=== PATIENT | female | born 1980 | race Two or more races ===

== ENCOUNTER 2018-07-12 20:50 | Inpatient (IN) | payer OTHER ==
[2018-07-12] MEDS ORDERED: CITRIC ACID/SODIUM CITRATE 30 ML UNIT-DOSE CUP PO ONE (23:00)
[2018-07-13] MEDS ORDERED: DEXTROSE 5%-LACTATED RINGERS 500 ML IV ONE (00:15)
[2018-07-13] MEDS ORDERED: DEXTROSE 5%-LACTATED RINGERS 1,000 ML IV SCH (00:45)
--- NOTE | 2018-07-13 01:04 | HP ---
Past Medical History - Admission History of Present Illness: 38 yo @ 40 3/7 wks by first trimester ultrasound, EDC 07/07/2018 complicated by: 1. AMA - reassuring NIPT, AFP 2. Alpha thalassemia - Heterozygous FOB - not tested Patient presents with chief complaint of contractions which increased in intensity and frequency at approximately 1830 07/12. She reports movement , denies leakage of fluid or vaginal bleeding. History Source: Patient Limitations to Obtaining History: No Limitations - Past Medical History Cardiovascular: No: HTN Pulmonary: No: Asthma Gastrointestinal: No: GERD ...: 3 ...Para: 0 ...Term: 0 ...: 0 ...Spon : 2 ...Induced : 0 ...LMP: 10/11/17 ... Weeks Gestation by Dates: 39.1 ...EDC by Dates: 07/18/18 ...EDC by Sono: 07/10/18 Heme/Onc: Yes: Other (alpha thalassemia carrier). No: Anemia - Past Surgical History Past Surgical History: Yes: Appendectomy Hx Myomectomy: No Hx Transabdominal Cerclage: No Additional Surgical History: Liposuction. Bilateral hernia repair. Rhinoplasty. Appendectomy (mini laparotomy) - Alcohol/Substance Use Hx Alcohol Use: No History of Substance Use: reports: None - Social History Usual Living Arrangement: Yes: Alone History of Recent Travel: No Home Medications - Allergies Allergies/Adverse Reactions: Allergies Allergy/AdvReac Type Severity Reaction Status Date / Time No Known Allergies Allergy Verified 07/12/18 22:05 - Home Medications Home Medications: Ambulatory Orders Pnv No.95/Ferrous Fum/Folic AC [ Vitamin Tablet] 1 each PO DAILY Family Disease History - Family Disease History Family History: Denies Review of Systems - Review of Systems Constitutional: reports: No Symptoms Cardiovascular: reports: No Symptoms Respiratory: reports: No Symptoms Gastrointestinal: reports: No Symptoms Musculoskeletal: reports: No Symptoms Neurological: reports: No Symptoms Hematology/Lymphatic: reports: No Symptoms Psychiatric: reports: No Symptoms Physical Exam - Maternity Vital Signs: Vital Signs Temperature 98.7 F 07/12/18 21:58 Pulse Rate 79 07/12/18 21:58 Respiratory Rate 18 07/12/18 21:58 Blood Pressure 126/79 11/28/18 21:58 O2 Sat by Pulse Oximetry (%) Constitutional: Yes: Well Nourished, No Distress, Calm Cardiovascular: Yes: Regular Rate and Rhythm Lungs: Clear to auscultation - Abdominal Exam/OB Number of Fetuses: Single Presentation: Vertex Contractions: Yes Regularity: Regular Intensity: Moderate Monitor Mode: External Category: I Accelerations: Non-Uniform Decelerations: None - Vaginal Exam/OB Vaginal Bleediing: No Dilatation (cm): 3 Effacement (%): 80 Amniotic Membrane Status: Intact Station: -4 - Physical Exam Edema: No Psychiatric: Yes: Alert, Oriented - Labs Lab Results: PNL: O positive, antibody negative; RPR NR; HIV neg; HCV neg; HBS Ag neg; Rubella immune; Varicella immune; CF/SMA/Fx neg; NIPT neg; GCT WNL; GBS neg; Parvo immune Hemorrhage Risk Assessment - Risk Factors Medium Risk Factors: Yes: None High Risk Factors: Yes: None Risk Score: 1 Risk Level: Medium Risk Assessment/Plan 38 yo @ 40 3/7 wks active labor 1. Admit to L&D 2. Consents reviewed and signed 3. GBS negative 4. Will offer pain medication upon request
[2018-07-13] MEDS ORDERED: BUTORPHANOL TARTRATE 1 MG/ML VIAL IVPB ONE (01:07)
[2018-07-13] MEDS ORDERED: PROMETHAZINE HCL 25 MG/1 ML VIAL IVPUSH ONE (01:07)
[2018-07-13] MEDS ORDERED: ELECTROLYTE-148 SOLN 1,000 ML IV SCH (01:15)
[2018-07-13 01:38] VITALS: BMI 30.4
[2018-07-13] MEDS ORDERED: PROMETHAZINE HCL 25 MG/1 ML VIAL ONE (01:48)
[2018-07-13] MEDS ORDERED: BUTORPHANOL TARTRATE 1 MG/ML VIAL ONE ×2 (01:48)
[2018-07-13 02:12] LABS: BASO % 0.1 % (0-2.0); EOS % 1.2 % (0-4.5); HEMATOCRIT 30.7 % (32.4-45.2); HEMOGLOBIN 10.7 GM/dL (10.7-15.3); MCH 26.5 pg (25.7-33.7); MEAN CELL VOLUME 75.6 fl (80-96); MEAN PLT VOLUME 9.8 fl (7.5-11.1); MONO % 4.8 % (3.8-10.2); NEUT % 70.9 % (42.8-82.8); PLATELET COUNT 182 K/MM3 (134-434); RBC 4.05 M/mm3 (3.60-5.2); RDW 15.7 % (11.6-15.6); WHITE BLOOD COUNT 7.1 K/mm3 (4.0-10.0)
[2018-07-13 02:28] LABS: INR 0.96 (0.83-1.09); PROTHROMBIN TIME (PATIENT) 11.3 SEC (9.7-13.0)
[2018-07-13 02:30] LABS: ACTIVATED PTT 26.1 SECONDS (25.2-36.5)
[2018-07-13 02:47] LABS: ANION GAP 10 MMOL/L (8-16); BLOOD UREA NITROGEN 11 mg/dL (7-18); CALCIUM 8.2 mg/dL (8.5-10.1); CHLORIDE 107 mmol/L (98-107); CO2 21 mmol/L (21-32); CREATININE 0.7 mg/dL (0.55-1.3); POTASSIUM 3.5 mmol/L (3.5-5.1); SODIUM 138 mmol/L (136-145)
[2018-07-13 03:00] LABS: GLUCOSE,RANDOM 326 mg/dL (74-106)
[2018-07-13] MEDS ORDERED: OXYTOCIN 30 UNITS in 0.9% NS 30 UNIT/500 ML INFUS.BAG IVPB ONE (04:33)
[2018-07-13] MEDS ORDERED: OXYTOCIN 30 UNITS in 0.9% NS 30 UNIT/500 ML INFUS.BAG IVPB SCH (04:45)
[2018-07-13] MEDS ORDERED: FENTANYL/BUPIVACAINE/NS/PF - PCEA - 50 ML DISP.SYRIN EP ONE ×2 (06:02→11:57)
[2018-07-13] MEDS ORDERED: NALOXONE HCL 0.4 MG/ML VIAL IVPUSH PRN (06:24)
[2018-07-13] MEDS ORDERED: BUPIVACAINE HCL/PF 0.25% (2.5MG/ML) 10 ML VIAL ONE (06:28)
[2018-07-13] MEDS ORDERED: FENTANYL/BUPIVACAINE/NS/PF - PCEA - 50 ML DISP.SYRIN EP SCH (06:30)
[2018-07-13] MEDS ORDERED: TUBERCULIN PPD 5 TU/0.1ML SYRINGE (IN PATIENT USE ONLY) ID ONE (10:00)
[2018-07-13] MEDS ORDERED: WITCH HAZEL 50% (TUCKS) 40 PAD/JAR PAD TP PRN (16:22)
[2018-07-13] MEDS ORDERED: BISACODYL 10 MG SUPP.RECT RC PRN (16:22)
[2018-07-13] MEDS ORDERED: BENZOCAINE 28 GM HEMORRHOIDAL OINTMENT TP PRN (16:22)
[2018-07-13] MEDS ORDERED: METHYLERGONOVINE MALEATE 0.2 MG/1 ML AMP IM PRN (16:22)
[2018-07-13] MEDS ORDERED: BENZOCAINE 20% 57 GM BOTTLE TP PRN (16:22)
--- NOTE | 2018-07-13 16:25 | PN ---
Delivery - Delivery Vaginal Delivery: Spontaneous Episiotomy/Laceration: Perineal Extension/lac (cord around neck once reduced . ant. and post shoulder with no difficulty , first degree vaginal laceration repaired with 2 0 chromic suture. no complication) Delivery, Single - [place] Feeding Plan Initial Plan: Elected not to breastfeed exclusively throughout hospitalization
[2018-07-13] MEDS ORDERED: OXYTOCIN 20 UNITS in 0.9% NS 20 UNIT/1,000 ML INFUS.BAG IV SCH (16:30)
[2018-07-13 16:44] LABS: ARTERIAL BLOOD GAS BASE EXCESS -5.2 meq/l (-2-2); ARTERIAL BLOOD GAS PCO2 55.4 mmHg (35-45)
[2018-07-13 16:59] LABS: ARTERIAL BLD GAS O2 SATURATION 34.4 % (90-98.9); ARTERIAL BLOOD GAS pH 7.24 (7.35-7.45)
[2018-07-13 17:09] LABS: VENOUS PC02 39.8 mmHg (38-52); VENOUS PH 7.33 (7.32-7.42); VENOUS PO2 32.8 mmHg (28-48)
[2018-07-13] MEDS ORDERED: ACETAMINOPHEN 325 MG TABLET (FP) ONE (18:24)
[2018-07-13] MEDS ORDERED: OXYTOCIN 20 UNITS in 0.9% NS 20 UNIT/1,000 ML INFUS.BAG IV ONE (18:25)
[2018-07-13] MEDS: ACETAMINOPHEN 325 MG TABLET (FP) PO PRN (18:30)
[2018-07-14 08:10] LABS: BASO % 0.2 % (0-2.0); EOS % 0.6 % (0-4.5); HEMOGLOBIN 10.3 GM/dL (10.7-15.3); LYMPH % 9.7 % (8-40); MCH 26.2 pg (25.7-33.7); MCHC 34.5 g/dl (32.0-36.0); MEAN CELL VOLUME 75.9 fl (80-96); MEAN PLT VOLUME 9.5 fl (7.5-11.1); MONO % 2.9 % (3.8-10.2); NEUT % 86.6 % (42.8-82.8); PLATELET COUNT 167 K/MM3 (134-434); RBC 3.95 M/mm3 (3.60-5.2); RDW 16.2 % (11.6-15.6); WHITE BLOOD COUNT 12.8 K/mm3 (4.0-10.0)
[2018-07-14] MEDS: FERROUS SO4 325 MG TABLET (FP) PO SCH ×2 (08:24→17:17)
--- NOTE | 2018-07-14 08:28 | PN ---
Progress Note (short form) - Note Progress Note: ppd 1 doing well, no c/o , no excess vaginal bleeding CBC, BMP 07/14/18 07:37 07/13/18 02:00 Last Vital Signs Temp Pulse Resp BP Pulse Ox 98.5 F 90 20 103/50 L 99 07/14/18 05:45 07/14/18 05:45 07/14/18 05:45 07/14/18 05:45 07/13/18 10:45 abdomen soft, uterus firm, non tender , no cva lochia mild no calf tenderness plan ambulate ,observe plan for d/c home in am
[2018-07-14] MEDS: PRENATAL VITAMINS W/ FOLIC ACID TABLET (FP) PO SCH (09:54)
[2018-07-14] MEDS: IBUPROFEN 600 MG TABLET (FP) PO PRN (14:27)
[2018-07-14] MEDS: ACETAMINOPHEN 325 MG TABLET (FP) PO PRN (14:28)
[2018-07-14] MEDS ORDERED: SENNOSIDES/DOCUSATE COMBO (SENNA PLUS) TABLET (UD) PO PRN (22:00)
--- NOTE | 2018-07-15 06:45 | PN ---
Post Progress Note - Subjective Subjective: Patient without acute complaints. Reports tolerating oral intake without nausea or vomiting. Ambulating without dizziness. Denies fevers or chills. Pain well controlled with oral pain medication. without difficulty. Passing flatus. Post Day: 1 Type of Delivery: Vital Signs: Vital Signs Temperature 98.6 F 07/14/18 22:00 Pulse Rate 70 07/14/18 22:00 Respiratory Rate 20 07/14/18 22:00 Blood Pressure 125/65 07/14/18 22:00 O2 Sat by Pulse Oximetry (%) 99 07/13/18 10:45 Breast Exam: Yes: Soft Uterus: Yes: Fundus Firm, Fundus below umbilicus Abdomen/GI: Yes: Abdomen soft, Passing flatus, Tolerating PO. No: Abdominal Distention, Tender Lochia: Yes: Serosa Lochia, amount: Moderate Extremities: Yes: Calves non-tender, Edema Activity: Ambulating - Labs Labs: CBC WBC 12.8 K/mm3 (4.0-10.0) H 07/14/18 07:37 RBC 3.95 M/mm3 (3.60-5.2) 07/14/18 07:37 Hgb 10.3 GM/dL (10.7-15.3) L 07/14/18 07:37 Hct 30.0 % (32.4-45.2) L 07/14/18 07:37 MCV 75.9 fl (80-96) L 07/14/18 07:37 MCH 26.2 pg (25.7-33.7) 07/14/18 07:37 MCHC 34.5 g/dl (32.0-36.0) 07/14/18 07:37 RDW 16.2 % (11.6-15.6) H 07/14/18 07:37 Plt Count 167 K/MM3 (134-434) 07/14/18 07:37 MPV 9.5 fl (7.5-11.1) 07/14/18 07:37 Absolute Neuts (auto) 11.1 K/mm3 (1.5-8.0) H 07/14/18 07:37 Neutrophils % 86.6 % (42.8-82.8) H D 07/14/18 07:37 Lymphocytes % 9.7 % (8-40) D 07/14/18 07:37 Monocytes % 2.9 % (3.8-10.2) L 07/14/18 07:37 Eosinophils % 0.6 % (0-4.5) 07/14/18 07:37 Basophils % 0.2 % (0-2.0) 07/14/18 07:37 Nucleated RBC % 0 % (0-0) 07/14/18 07:37 Assessment/Plan 38 yo PPD # 2 s/p , afebrile, vital signs stable, stable for discharge home today 1. Patient stable for discharge home today. 2. Patient encouraged to contact MD for: - Severe pain not controlled by oral pain medication - Fevers or chills - Nausea or vomiting, intolerance of oral intake 3. Patient to follow up in office in 4-6 weeks for visit
--- NOTE | 2018-07-15 06:46 | DS ---
Physical Exam-[employer] Vital Signs: Vital Signs Temperature 98.6 F 07/14/18 22:00 Pulse Rate 70 07/14/18 22:00 Respiratory Rate 20 07/14/18 22:00 Blood Pressure 125/65 07/14/18 22:00 O2 Sat by Pulse Oximetry (%) 99 07/13/18 10:45 Labs: CBC, BMP 07/14/18 07:37 07/13/18 02:00 Delivery - Delivery Vaginal Delivery: Spontaneous Type of Anesthesia: Epidural Episiotomy/Laceration: Perineal Extension/lac, 1st degree EBL (cc): 300 Delivery, Single - Stages of Labor Date 1st Stage Initiatied: 07/13/18 Time 1st Stage Initiated: 01:00 Date 2nd Stage Initiated: 07/13/18 Time 2nd Stage Initiated: 15:30 Date of Delivery: 07/13/18 Time of Delivery: 16:10 Time Placenta Delivered: 16:03 - 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 She fulfilled all criteria for discharge PPD #2 - Instructions - Home Medications Comprehensive Discharge Medication List: Ambulatory Orders Pnv No.95/Ferrous Fum/Folic AC [ Vitamin Tablet] 1 each PO DAILY
[2018-07-15] MEDS: FERROUS SO4 325 MG TABLET (FP) PO SCH (07:44)
[2018-07-15] MEDS: IBUPROFEN 600 MG TABLET (FP) PO PRN (07:44)
[2018-07-15] MEDS: ACETAMINOPHEN 325 MG TABLET (FP) PO PRN (07:45)
[2018-07-15] MEDS: PRENATAL VITAMINS W/ FOLIC ACID TABLET (FP) PO SCH (09:11)
[2018-07-15 10:55] VITALS: BP 107/71; PULSE 75; TEMP 98.8
== END 2018-07-15 16:00 | disposition home or self-care (01) | DRG 807 ==
LOC: JDEL 20:50 → JLDR 07-13 00:15 → J3W 07-13 20:05
PROVIDERS: ADMIT Obstetrics & Gynecology; ATTEND Obstetrics & Gynecology
PROC: 10E0XZZ Delivery of Products of Conception, External Approach (ICD-10-PCS; principal; 2018-07-13)
PROC: 0HQ9XZZ Repair Perineum Skin, External Approach (ICD-10-PCS; 2018-07-13)
DX: O48.0 Post-term pregnancy (principal); Z37.0 Single live birth; O69.81X0 Labor and delivery complicated by cord around neck, without compression, not applicable or unspecified; O26.893 Other specified pregnancy related conditions, third trimester; D56.3 Thalassemia minor; O70.0 First degree perineal laceration during delivery; Z3A.40 40 weeks gestation of pregnancy; Z3A.01 Less than 8 weeks gestation of pregnancy
CPT/HCPCS: 36415; 36600; 59409; 80048; 82803; 85025; 85610; 85730; 86593; 86850; 86900; 86901

== ENCOUNTER 2020-09-30 18:20 | Inpatient (IN) | payer OTHER ==
[2020-09-30] MEDS: ELECTROLYTE-148 SOLN 1,000 ML IV SCH (20:10)
[2020-09-30 20:41] LABS: RETICULOCYTES 1.89 % (0.5-1.5)
[2020-09-30 20:45] LABS: INR 1.01 (0.83-1.09); PROTHROMBIN TIME (PATIENT) 12.4 SEC (9.7-13.0)
[2020-09-30 20:48] LABS: ACTIVATED PTT 25.8 SECONDS (25.2-36.5)
[2020-09-30 21:02] LABS: URIC ACID 2.9 mg/dL (2.6-7.2)
[2020-09-30] MEDS ORDERED: PROMETHAZINE HCL 25 MG/1 ML VIAL IVPUSH ONE (21:59)
[2020-09-30] MEDS ORDERED: BUTORPHANOL TARTRATE 2 MG/ML VIAL IVPB ONE (21:59)
[2020-09-30] MEDS ORDERED: OXYTOCIN 30 UNITS in 0.9% NS 30 UNIT/500 ML INFUS.BAG IVPB SCH ×2 (22:00→22:15)
[2020-09-30] MEDS ORDERED: DEXTROSE 5%-LACTATED RINGERS 1,000 ML IV SCH (22:00)
[2020-09-30] MEDS ORDERED: PROMETHAZINE HCL 25 MG/1 ML VIAL ONE (23:00)
[2020-09-30] MEDS ORDERED: BUTORPHANOL TARTRATE 2 MG/ML VIAL ONE (23:00)
[2020-09-30] MEDS ORDERED: OXYTOCIN 30 UNITS in 0.9% NS 30 UNIT/500 ML INFUS.BAG IVPB ONE (23:00)
[2020-09-30 23:42] LABS: BASO % 0.1 % (0-2.0); EOS % 0.6 % (0-4.5); HEMATOCRIT 35.3 % (32.4-45.2); HEMOGLOBIN 11.7 GM/dL (10.7-15.3); LYMPH % 16.3 % (8-40); MCH 25.7 pg (25.7-33.7); MCHC 33.2 g/dl (32.0-36.0); MEAN CELL VOLUME 77.4 fl (80-96); MEAN PLT VOLUME 9.1 fl (7.5-11.1); MONO % 5.8 % (3.8-10.2); NEUT % 77.2 % (42.8-82.8); PLATELET COUNT 203 K/MM3 (134-434); RBC 4.55 M/mm3 (3.60-5.2); RDW 15.3 % (11.6-15.6); WHITE BLOOD COUNT 12.2 K/mm3 (4.0-10.0)
[2020-09-30 23:51] LABS: PROTHROMBIN TIME (PATIENT) 12.3 SEC (9.7-13.0)
[2020-09-30 23:54] LABS: ACTIVATED PTT 26.8 SECONDS (25.2-36.5)
[2020-10-01] LABS: POTASSIUM 3.8 mmol/L (3.5-5.1)
[2020-10-01 00:02] LABS: BLOOD UREA NITROGEN 8.2 mg/dL (7-18); CALCIUM 9.3 mg/dL (8.5-10.1)
[2020-10-01 00:06] LABS: CREATININE 0.5 mg/dL (0.55-1.3)
[2020-10-01 01:20] VITALS: BMI 29.0
[2020-10-01] MEDS ORDERED: NALOXONE HCL 0.4 MG/ML VIAL IVPUSH PRN (02:08)
[2020-10-01] MEDS ORDERED: FENTANYL/BUPIVACAINE/NS/PF - PCEA - 50 ML DISP.SYRIN EP ONE ×2 (02:10→06:29)
[2020-10-01] MEDS ORDERED: FENTANYL/BUPIVACAINE/NS/PF - PCEA - 50 ML DISP.SYRIN EP SCH ×2 (02:15→02:51)
[2020-10-01] MEDS: ELECTROLYTE-148 SOLN 1,000 ML IV SCH (02:40)
[2020-10-01] MEDS ORDERED: BUPIVACAINE HCL/PF 0.25% (2.5MG/ML) 10 ML VIAL ONE (08:23)
[2020-10-01] MEDS ORDERED: PCA PUMP NR ONE (08:27)
[2020-10-01] MEDS ORDERED: LIDOCAINE HCL 1% PRESERVATIVE FREE - 30ML VIAL ONE (09:04)
[2020-10-01] MEDS ORDERED: OXYTOCIN 20 UNITS in 0.9% NS 20 UNIT/1,000 ML INFUS.BAG IV ONE (09:04)
[2020-10-01] MEDS ORDERED: ACETAMINOPHEN 325 MG TABLET (FP) ONE (11:34)
[2020-10-01] MEDS ORDERED: WITCH HAZEL 50% (TUCKS) 40 PAD/JAR PAD TP PRN (19:32)
[2020-10-01] MEDS ORDERED: METHYLERGONOVINE MALEATE 0.2 MG/1 ML AMP IM PRN (19:32)
[2020-10-01] MEDS ORDERED: IBUPROFEN 600 MG TABLET (FP) PO PRN (19:32)
[2020-10-01] MEDS ORDERED: ACETAMINOPHEN 325 MG TABLET (FP) PO PRN (19:32)
[2020-10-01] MEDS ORDERED: BENZOCAINE 28 GM HEMORRHOIDAL OINTMENT TP PRN (19:32)
[2020-10-01] MEDS ORDERED: BENZOCAINE 20% 57 GM BOTTLE TP PRN (19:32)
[2020-10-01] MEDS ORDERED: BISACODYL 10 MG SUPP.RECT RC PRN (19:32)
[2020-10-01] MEDS ORDERED: OXYTOCIN 20 UNITS in 0.9% NS 20 UNIT/1,000 ML INFUS.BAG IV SCH (19:45)
[2020-10-02 06:34] VITALS: BP 110/54; PULSE 73; TEMP 97.7
[2020-10-02 10:13] LABS: BASO % 0.2 % (0-2.0); EOS % 2.1 % (0-4.5); HEMATOCRIT 32.5 % (32.4-45.2); HEMOGLOBIN 10.7 GM/dL (10.7-15.3); LYMPH % 15.2 % (8-40); MCH 25.5 pg (25.7-33.7); MCHC 33.1 g/dl (32.0-36.0); MEAN CELL VOLUME 77.2 fl (80-96); MEAN PLT VOLUME 9.2 fl (7.5-11.1); MONO % 4.9 % (3.8-10.2); NEUT % 77.6 % (42.8-82.8); PLATELET COUNT 193 K/MM3 (134-434); RBC 4.21 M/mm3 (3.60-5.2); RDW 15.8 % (11.6-15.6); WHITE BLOOD COUNT 12.3 K/mm3 (4.0-10.0)
[2020-10-02] MEDS ORDERED: SENNOSIDES/DOCUSATE COMBO (SENNA PLUS) TABLET (UD) PO PRN (22:00)
== END 2020-10-02 10:30 | disposition home or self-care (01) | DRG 807 ==
LOC: JLDR 18:20 → J3W 10-01 12:35
PROVIDERS: ADMIT Obstetrics & Gynecology; ATTEND Obstetrics & Gynecology
PROC: 10E0XZZ Delivery of Products of Conception, External Approach (ICD-10-PCS; principal; 2020-10-01)
PROC: 10907ZC Drainage of Amniotic Fluid, Therapeutic from Products of Conception, Via Natural or Artificial Opening (ICD-10-PCS; 2020-10-01)
DX: O36.4XX0 Maternal care for intrauterine death, not applicable or unspecified (principal); Z37.1 Single stillbirth; O69.1XX0 Labor and delivery complicated by cord around neck, with compression, not applicable or unspecified; O77.0 Labor and delivery complicated by meconium in amniotic fluid; O70.0 First degree perineal laceration during delivery; Z3A.36 36 weeks gestation of pregnancy; Z14.8 Genetic carrier of other disease
CPT/HCPCS: 36415; 59409; 80048; 82977; 83010; 84450; 84460; 84550; 85025; 85032; 85045; 85384; 85610; 85730; 86780; 86850; 86900; 86901; 88307-TC; C9803; U0003

== ENCOUNTER 2023-08-22 07:43 | Inpatient (IN) | payer OTHER ==
[2023-08-22] MEDS ORDERED: OXYTOCIN 30 UNITS in 0.9% NS 30 UNIT/500 ML INFUS.BAG IVPB SCH (09:00)
[2023-08-22] MEDS ORDERED: OXYTOCIN 30 UNITS in 0.9% NS 30 UNIT/500 ML INFUS.BAG IVPB ONE (09:45)
[2023-08-22 10:03] LABS: INR 0.98 (0.83-1.09); PROTHROMBIN TIME (PATIENT) 11.4 SEC (9.7-13.0)
[2023-08-22 10:06] LABS: ACTIVATED PTT 26.5 SECONDS (25.2-36.5); BASO % 0.2 % (0-2.0); EOS % 1.1 % (0-4.5); HEMATOCRIT 32.2 % (32.4-45.2); HEMOGLOBIN 10.7 GM/dL (10.7-15.3); LYMPH % 16.9 % (8-40); MCH 25.6 pg (25.7-33.7); MCHC 33.3 g/dl (32.0-36.0); MEAN PLT VOLUME 9.3 fl (7.5-11.1); MONO % 7.8 % (3.8-10.2); PLATELET COUNT 172 10^3/uL (134-434); RBC 4.18 M/mm3 (3.60-5.2); RDW 16.6 % (11.6-15.6); WHITE BLOOD COUNT 8.2 K/mm3 (4.0-10.0)
[2023-08-22] MEDS: ELECTROLYTE-148 SOLN 1,000 ML IV SCH ×2 (10:15→15:57)
[2023-08-22 10:16] LABS: POTASSIUM 3.7 mmol/L (3.5-5.1)
[2023-08-22 10:19] LABS: BLOOD UREA NITROGEN 9.6 mg/dL (7-18); CALCIUM 8.8 mg/dL (8.5-10.1)
[2023-08-22 10:23] LABS: CREATININE 0.5 mg/dL (0.55-1.3)
[2023-08-22 10:49] VITALS: BMI 31.6
[2023-08-22 12:19] LABS: SYPHILIS W/ RPR CONF NON-REACTIVE (NONREACTIVE)
[2023-08-22 12:48] LABS: HIV INTERPRETATION NEGATIVE (NEGATIVE)
[2023-08-22] MEDS ORDERED: FENTANYL/BUPIVACAINE/NS/PF - PCEA - 50 ML DISP.SYRIN EP ONE (15:05)
[2023-08-22] MEDS ORDERED: NALOXONE HCL 0.4 MG/ML VIAL IVPUSH PRN (15:12)
[2023-08-22] MEDS ORDERED: FENTANYL/BUPIVACAINE/NS/PF - PCEA - 50 ML DISP.SYRIN EP SCH (15:15)
[2023-08-22] MEDS ORDERED: FENTANYL CITRATE/PF 50 MCG/ML VIAL ONE (15:20)
[2023-08-22] MEDS ORDERED: BUPIVACAINE HCL/PF 0.25% (2.5MG/ML) 10 ML VIAL ONE (15:22)
[2023-08-22] MEDS ORDERED: OXYTOCIN 20 UNITS in 0.9% NS 20 UNIT/1,000 ML INFUS.BAG IV ONE (19:07)
[2023-08-22] MEDS ORDERED: LIDOCAINE HCL 1% PRESERVATIVE FREE - 30ML VIAL ONE (19:08)
[2023-08-22 20:32] LABS: CORD BASE EXCESS -1.1 mmol/L (0-2); CORD HCO3 23.7 mmHg (20-29); CORD PCO2 40.1 mmHg (30-78); CORD pH 7.39 (7.14-7.44)
[2023-08-22] MEDS ORDERED: BISACODYL 10 MG SUPP.RECT RC PRN (20:44)
[2023-08-22] MEDS ORDERED: oxyCODONE HCL 5 MG TABLET PO PRN (20:44)
[2023-08-22] MEDS ORDERED: BENZOCAINE 28 GM HEMORRHOIDAL OINTMENT TP PRN (20:44)
[2023-08-22] MEDS ORDERED: BENZOCAINE 20% 57 GM BOTTLE TP PRN (20:44)
[2023-08-22] MEDS ORDERED: WITCH HAZEL 50% (TUCKS) 40 PAD/JAR PAD TP PRN (20:44)
[2023-08-22] MEDS ORDERED: METHYLERGONOVINE MALEATE 0.2 MG/1 ML AMP IM PRN (20:44)
[2023-08-22] MEDS ORDERED: ACETAMINOPHEN 325 MG TABLET (FP) PO PRN (20:44)
[2023-08-22] MEDS ORDERED: OXYTOCIN 20 UNITS in 0.9% NS 20 UNIT/1,000 ML INFUS.BAG IV SCH (20:45)
[2023-08-22] MEDS ORDERED: IBUPROFEN 600 MG TABLET (FP) PO ONE (21:37)
[2023-08-22] MEDS: IBUPROFEN 600 MG TABLET (FP) PO PRN (21:38)
[2023-08-23] MEDS: IBUPROFEN 600 MG TABLET (FP) PO PRN ×3 (03:06→22:52)
[2023-08-23 08:24] LABS: BASO % 0.2 % (0-2.0); EOS % 1.2 % (0-4.5); HEMATOCRIT 29.8 % (32.4-45.2); HEMOGLOBIN 9.9 GM/dL (10.7-15.3); LYMPH % 14.3 % (8-40); MCH 25.4 pg (25.7-33.7); MCHC 33.1 g/dl (32.0-36.0); MEAN CELL VOLUME 76.7 fl (80-96); MONO % 5.5 % (3.8-10.2); NEUT % 78.8 % (42.8-82.8); PLATELET COUNT 154 10^3/uL (134-434); RBC 3.89 M/mm3 (3.60-5.2); RDW 16.5 % (11.6-15.6); WHITE BLOOD COUNT 11.1 K/mm3 (4.0-10.0)
[2023-08-23] MEDS: PRENATAL VITAMINS W/ FOLIC ACID TABLET (FP) PO SCH (09:30)
[2023-08-23 17:39] VITALS: RESP 18
[2023-08-23] MEDS ORDERED: SENNOSIDES/DOCUSATE COMBO (SENNA PLUS) TABLET (UD) PO PRN (22:00)
[2023-08-24 10:09] VITALS: BP 124/70; PULSE 89; TEMP 97.6
[2023-08-24] MEDS: PRENATAL VITAMINS W/ FOLIC ACID TABLET (FP) PO SCH (10:45)
[2023-08-24] MEDS: IBUPROFEN 600 MG TABLET (FP) PO PRN (10:49)
== END 2023-08-24 13:55 | disposition home or self-care (01) | DRG 807 ==
LOC: JLDR 07:43 → J3W 21:48
PROVIDERS: ADMIT Obstetrics & Gynecology; ATTEND Obstetrics & Gynecology
PROC: 0HQ9XZZ Repair Perineum Skin, External Approach (ICD-10-PCS; principal; 2023-08-22)
PROC: 10E0XZZ Delivery of Products of Conception, External Approach (ICD-10-PCS; 2023-08-22)
DX: O70.0 First degree perineal laceration during delivery (principal); Z37.0 Single live birth; Z3A.37 37 weeks gestation of pregnancy
CPT/HCPCS: 36415; 36600; 80048; 82803; 85025; 85610; 85730; 86780; 86850; 86900; 86901; 87389